=== PATIENT | female | born 1960 | race Caucasian/White ===

== ENCOUNTER 2017-07-18 08:44 | Day surgery (SDC) | payer OTHER ==
[2017-07-18] MEDS ORDERED: Lactated Ringer's 1,000 ML IV ONE (09:03)
[2017-07-18 09:25] VITALS: TEMP 97.3; O2SAT 100
[2017-07-18] MEDS ORDERED: Lidocaine 2% MPF (5 ml) Inj ONE (10:17)
[2017-07-18] MEDS ORDERED: Propofol 10 mg/ml Inj (20 ML) ONE (10:17)
[2017-07-18 11:03] VITALS: BP 119/69; PULSE 84; RESP 18
== END 2017-07-18 11:03 | disposition home or self-care (01) ==
LOC: H.ENDO 08:44
PROVIDERS: ATTEND Internal Medicine Gastroenterology
DX: Z12.11 Encounter for screening for malignant neoplasm of colon (principal); E11.9 Type 2 diabetes mellitus without complications; I10 Essential (primary) hypertension; K64.0 First degree hemorrhoids; D12.5 Benign neoplasm of sigmoid colon; D12.3 Benign neoplasm of transverse colon
CPT/HCPCS: 45380; 82948; 88305; J2704; J7120